=== PATIENT | female | born 1990 | race Caucasian/White ===

== ENCOUNTER 2018-01-07 13:04 | Emergency (ER) | payer BC ==
[~2018-01-07] VITALS: Ht 160 cm; Wt 70.9 kg
[2018-01-07 13:07] VITALS: TEMP 36.6; Ht 160 cm; Wt 70.9 kg
[2018-01-07] MEDS ORDERED: ONDANSETRON INJ 2 MG/ML 2 ML VIAL IV STA (13:23)
[2018-01-07] MEDS ORDERED: SODIUM CHLORIDE 0.9% 1000ML 1,000 ML IV STA (13:23)
[2018-01-07] MEDS ORDERED: HYDROmorphone INJ 0.5 MG/0.5 ML SYR IV STA ×2 (13:23→16:26)
[2018-01-07] MEDS ORDERED: FAMOTIDINE IV INJ 20 MG in DEXTROSE 5% 100ML 100 ML IV SCH (13:30)
--- NOTE | 2018-01-07 13:30 | EMERGENCY ROOM VISIT NOTE ---
ED Visit Note First contact with patient: 13:11 CHIEF COMPLAINT: Epigastric pain, nausea, vomiting HISTORY OF PRESENTING ILLNESS: This is a 27-year-old female past medical history significant for idiopathic gastroparesis and gastric pacemaker, POTS, chronic abdominal pain on hydromorphone and tramadol, who presents to the emergency department with complaint of epigastric pain that started last night. She states that she frequently gets flare-ups of her gastroparesis, she thought this was the cause of her pain, but states that her symptoms feel worse than usual. She states the pain has been constant, in the epigastric region and right upper quadrant, radiates into her right shoulder blade area, worse after PO, currently rates as 8/10. She states that she took her Dilaudid and Zofran this morning around 8 AM, but states she vomited shortly thereafter and feels that these have not helped her pain or nausea at all. She did also try Maalox last night thinking it could be indigestion, but states this did not help. She has had associated nausea, vomiting 2, and loose stools, which she states are greasy appearing. She denies any bloody, black, or coffee ground emesis or stools. She states she has been vomiting bile and has not been able to tolerate anything by mouth since this morning. She denies any headaches, vision changes, neck pain or stiffness, chest pain, shortness of breath, dizziness or syncope, cough, urinary symptoms, or rash. REVIEW OF SYSTEMS: A complete 10 point review of systems was reviewed with the patient with pertinent positives and negatives as per history of present illness. All else were negative. PAST MEDICAL HISTORY: Reviewed as above. FAMILY HISTORY: Reports that her mother has a history of gallbladder disease and had her gallbladder removed. SOCIAL HISTORY: Lives at home with family. She is a current everyday smoker. She denies alcohol or recreational drug use. ALLERGIES: Reviewed in chart. PHYSICAL EXAM: CONSTITUTIONAL: Pleasant and cooperative. No acute distress, but appears uncomfortable. Mildly dehydrated, but otherwise well appearing and well nourished. HEENT: Normocephalic, atraumatic. Pupils equal, round and reactive to light, EOMI. TMs normal. Pharynx normal. Tacky mucous membranes. NECK: Supple, full active range of motion without discomfort. No cervical adenopathy. RESPIRATORY: Clear to auscultation bilaterally with no wheezing, crackles, rhonchi or stridor. Equal expansion bilaterally. CARDIOVASCULAR: Regular rate and rhythm with no murmurs, rubs or gallops. Normal peripheral perfusion. No edema. GASTROINTESTINAL: Moderate tenderness in the epigastric and right upper quadrant abdomen, positive Guan sign. Abdomen is otherwise soft and nondistended. No rebound tenderness or guarding. No palpable masses or HSM. Hypoactive bowel sounds present in all quadrants. MUSCULOSKELETAL: Full range of motion of all joints without discomfort. INTEGUMENTARY: No rash or other significant dermatologic conditions noted. NEUROLOGIC: Alert and oriented X 4 with normal affect. Normal strength and sensation in all 4 extremity. No focal neurologic deficits noted. Normal speech. Normal gait observed. ED COURSE AND MEDICAL DECISION MAKING: CC: Patient presenting with complaint of epigastric pain, nausea/vomiting, and loose stool DIFFERENTIAL DIAGNOSIS: Includes, but not limited to gastroparesis, gastroenteritis, gastritis, peptic ulcer disease, GERD, cholecystitis, cholelithiasis, pancreatitis, hepatitis, chronic pain, among others. INTERPRETATION OF LABS: No leukocytosis, mild anemia, no significant electrolyte abnormalities, normal renal function, normal liver enzymes and lipase. UA negative, urine negative IMAGING: ABDOMEN 2VIEW W/PA CHEST RTN CLINICAL HISTORY: 27 years-old Female presenting with epigastric pain, eval obstruction. TECHNIQUE: PA view of the chest and supine and upright views of the abdomen were obtained. COMPARISON: None. FINDINGS: Accessed right subclavian Mediport terminates in the lower SVC. Cardiomediastinal silhouette normal. Lungs and pleural spaces clear. Implanted registered medical assistant projects over the right abdomen with 2 leads projecting over the epigastrium. A suture line is noted in the epigastrium. Multiple additional suture lines may be present in the left mid abdomen. Nonobstructive bowel gas pattern. No gross pneumoperitoneum. Allowing for bowel gas and stool, no calcifications to suggest nephrolithiasis. Osseous structures normal. IMPRESSION: 1. No acute cardiopulmonary disease. 2. Postsurgical changes of the abdomen with an implanted device with leads in the epigastrium, possibly to the stomach. Correlate with surgical history. 3. No bowel obstruction or free air. ----- ULTRASOUND RIGHT UPPER QUADRANT ABDOMEN CLINICAL HISTORY: Epigastric abdominal pain. COMPARISON STUDY: Abdominal radiograph dated 01/07/2018. TECHNIQUE: Real-time, grayscale, and color flow sonography of the right upper quadrant of the abdomen was performed. Images are reviewed in the transverse and longitudinal planes. FINDINGS: Liver: The liver is normal in size and echotexture. There is no intrahepatic biliary ductal dilatation. The main portal vein is patent. Gallbladder: A 2 mm gallbladder polyp is incidentally noted. The gallbladder is otherwise normal in appearance. No gallstones are identified. There is no gallbladder wall thickening or pericholecystic fluid. A sonographic Guan's sign is reportedly absent. The common bile duct measures up to 0.4 cm in diameter. Pancreas: Visualized portions of the pancreatic head are normal in appearance. The majority of the pancreas was not well visualized. Right kidney: Survey images of the right kidney demonstrate normal size and echotexture. There is no hydronephrosis. Ascites: None. IMPRESSION: Unremarkable sonographic assessment of the right upper quadrant. No gallstones are identified. MEDICATION RECONCILIATION: I attest that I have personally reviewed the patient 's current medication list. INITIAL VITAL SIGNS REVIEW: I reviewed the patient's initial vital signs and interpret them as follows: T: Afebrile; BP: Normotensive; HR: Tachycardic; RR : Within normal limits; Pulse Ox: Within normal limits on room air. Blood pressure screening: The patient was found to have normal blood pressure on screening and does not require follow-up for repeat blood pressure check. SUMMARY: Patient was evaluated at bedside, history and physical exam performed. Patient is alert and oriented, in no acute distress, but does appear uncomfortable, resting in the stretcher. Patient is moderately tender in the epigastric and right upper quadrant region to palpation with positive Guan sign and rebound tenderness in the right upper quadrant. Patient does appear mildly dehydrated and is noted to be somewhat tachycardic. Orders were placed at bedside for labs, UA and urine , IV fluids for hydration, IV Zofran for nausea, IV Dilaudid for pain, IV Pepcid, acute abdominal x-ray series and right upper quadrant ultrasound to evaluate for epigastric pain. Patient discussed with Dr. Rob, who agrees with my assessment and plan. Labs and imaging reviewed as above, unremarkable with no explanation for the patient's pain. I suspect the patient is having a flare of her gastroparesis. She did have some improvement after Zofran and her first dose of Dilaudid, but is still complaining of pain and nausea. She was given a second dose of Dilaudid and some Phenergan. She was also given a GI cocktail. On reassessment after her second dose of medications, she states that she is feeling improved and is tolerating oral fluids at this time. Patient reassessed multiple times throughout ED stay, she remained stable and well-appearing, has not had any vomiting, and has tolerated PO fluids without incident. Patient was updated on all results and plan for discharge, she was encouraged to follow closely with her primary care provider and to keep her scheduled appointment to get established with a new GI doctor. She is concerned about her pain getting worse on the trip home, she was given PO oxycodone prior to discharge, and encouraged to continue her home pain medication as prescribed. Patient was also given strict return precautions should her symptoms worsen, she verbalized understanding. Patient was discharged home in stable condition and ambulatory. Current/Historical Medications Scheduled Duloxetine Hcl (Cymbalta), 60 MG PO DAILY Sucralfate (Carafate), 10 ML PO QID Trazodone Hcl (Trazodone), 100 MG PO HS Scheduled PRN Hydromorphone Hcl (Dilaudid), 4 MG PO UD PRN for Pain Lorazepam (Ativan), 1 MG PO UD PRN for Anxiety Ondansetron Hcl (Zofran), 4 MG PO UD PRN for Nausea Allergies Coded Allergies: Metoclopramide (Unverified Allergy, Severe, SIDE EFFECTS, 01/07/18) PT STATES SHE GETS THE SIDE EFFECTS OF THIS DRUG WHEN GIVEN SO A RECENT DR TOLD HER NOT TO EVER GET IT AGAIN. Amoxicillin (Unverified Adverse Reaction, Severe, HIVES, 01/07/18) Clavulanic Acid (Unverified Adverse Reaction, Severe, HIVES, 01/07/18) Fentanyl (Unverified Adverse Reaction, Severe, HIVES, 01/07/18) Ketorolac Tromethamine (Unverified Adverse Reaction, Severe, HIVES, 01/07/18 ) Uncoded Allergies: SILK TAPE (Adverse Reaction, Intermediate, RASH, 01/07/18) RIPS OFF SKIN WHEN LEFT ON TOO LONG. Vital Signs Date Time Temp Pulse Resp B/P (MAP) Pulse Ox O2 Delivery O2 Flow Rate FiO2 01/07/18 19:00 97 12 94/67 100 01/07/18 18:30 97 16 99 Room Air 01/07/18 18:01 100/73 01/07/18 18:00 86 19 99 Room Air 01/07/18 17:31 105/68 01/07/18 17:30 89 20 99 Room Air 01/07/18 17:01 98/80 01/07/18 17:00 98 14 96 Room Air 01/07/18 16:59 96 14 98/80 96 Room Air 01/07/18 16:36 88 01/07/18 16:14 95 17 112/72 98 Room Air 01/07/18 15:14 99 24 96/67 96 Room Air 01/07/18 13:07 36.6 104 20 109/62 98 Room Air Laboratory Results 01/07/18 14:35 Red Blood Count 4.64, Mean Corpuscular Volume 78.2, Mean Corpuscular Hemoglobin 25.4, Mean Corpuscular Hemoglobin Concent 32.5, Mean Platelet Volume 9.7, Neutrophils (%) (Auto) 43.7, Lymphocytes (%) (Auto) 43.6, Monocytes (%) (Auto) 9.8, Eosinophils (%) (Auto) 2.1, Basophils (%) (Auto) 0.4, Neutrophils # (Auto) 2.46, Lymphocytes # (Auto) 2.45, Monocytes # (Auto) 0.55, Eosinophils # (Auto) 0.12, Basophils # (Auto) 0.02 01/07/18 14:35 Test 01/07/18 13:30 01/07/18 14:35 Urine Color YELLOW Urine Appearance CLEAR (CLEAR) Urine pH 8.5 (4.5-7.5) Urine Specific [place] 1.020 (1.000-1.030) Urine Protein NEG (NEG) Urine Glucose (UA) NEG (NEG) Urine Ketones NEG (NEG) Urine Occult Blood NEG (NEG) Urine Nitrite NEG (NEG) Urine Bilirubin NEG (NEG) Urine Urobilinogen NEG (NEG) Urine Leukocyte Esterase NEG (NEG) Urine Test NEG (NEG) White Blood Count 5.62 K/uL (4.8-10.8) Red Blood Count 4.64 M/uL (4.2-5.4) Hemoglobin 11.8 g/dL (12.0-16.0) Hematocrit 36.3 % (37-47) Mean Corpuscular Volume 78.2 fL (80-100) Mean Corpuscular Hemoglobin 25.4 pg (25-34) Mean Corpuscular Hemoglobin Concent 32.5 g/dl (32-36) Platelet Count 251 K/uL (130-400) Mean Platelet Volume 9.7 fL (7.4-10.4) Neutrophils (%) (Auto) 43.7 % Lymphocytes (%) (Auto) 43.6 % Monocytes (%) (Auto) 9.8 % Eosinophils (%) (Auto) 2.1 % Basophils (%) (Auto) 0.4 % Neutrophils # (Auto) 2.46 K/uL (1.4-6.5) Lymphocytes # (Auto) 2.45 K/uL (1.2-3.4) Monocytes # (Auto) 0.55 K/uL (0.11-0.59) Eosinophils # (Auto) 0.12 K/uL (0-0.5) Basophils # (Auto) 0.02 K/uL (0-0.2) RDW Standard Deviation 46.8 fL (36.4-46.3) RDW Coefficient of Variation 16.5 % (11.5-14.5) Immature Granulocyte % (Auto) 0.4 % Immature Granulocyte # (Auto) 0.02 K/uL (0.00-0.02) Anion Gap 6.0 mmol/L (3-11) Est Creatinine Clear Calc Drug Dose 119.0 ml/min Estimated GFR () 139.6 Estimated GFR (Non- 120.5 BUN/Creatinine Ratio 13.3 (10-20) Calcium Level 8.6 mg/dl (8.5-10.1) Total Bilirubin 0.3 mg/dl (0.2-1) Direct Bilirubin < 0.1 mg/dl (0-0.2) Aspartate Amino Transf (AST/SGOT) 13 U/L (15-37) Alanine Aminotransferase (ALT/SGPT) 16 U/L (12-78) Alkaline Phosphatase 95 U/L (45-117) Total Protein 7.4 gm/dl (6.4-8.2) Albumin 3.5 gm/dl (3.4-5.0) Lipase 111 U/L (73-393) Medications Administered Medications (Trade) Dose Ordered Sig/Shira Route Start Time Stop Time Status Last Admin Dose Admin Ondansetron HCl (Zofran Inj) 4 mg NOW STAT IV 01/07/18 13:23 01/07/18 13:26 DC 01/07/18 15:05 4 MG Sodium Chloride 1,000 ml @ 999 mls/hr Q1H1M STAT IV 01/07/18 13:23 01/07/18 14:23 DC 01/07/18 15:08 999 MLS/HR Famotidine 20 mg/ Dextrose 102 ml @ 200 mls/hr Q12H IV 01/07/18 13:30 01/07/18 14:00 DC 01/07/18 15:04 200 MLS/HR Hydromorphone HCl (Dilaudid Inj) 0.5 mg NOW STAT IV 01/07/18 13:23 01/07/18 13:26 DC 01/07/18 15:05 0.5 MG Hydromorphone HCl (Dilaudid Inj) 0.5 mg NOW STAT IV 01/07/18 16:26 01/07/18 16:27 DC 01/07/18 16:47 0.5 MG Promethazine HCl 25 mg/Sodium Chloride 51 ml @ 204 mls/hr NOW STAT IV 01/07/18 16:26 01/07/18 16:40 DC 01/07/18 16:47 204 MLS/HR Al Hydroxide/Mg Hydroxide (Maalox Susp) 30 ml STK-MED ONCE .ROUTE 01/07/18 16:44 01/07/18 16:45 DC 01/07/18 16:47 30 ML Lidocaine HCl (Viscous Lidocaine 2% Soln) 20 ml STK-MED ONCE .ROUTE 01/07/18 16:44 01/07/18 16:45 DC 01/07/18 16:47 20 ML Oxycodone HCl (Roxicodone Immediate Rel Tab) 5 mg NOW STAT PO 01/07/18 18:27 01/07/18 18:28 DC 01/07/18 18:33 5 MG Heparin Sodium (Porcine) (Heparin 100 Unit/ml 5ml Flush) 5 ml STK-MED ONCE .ROUTE 01/07/18 18:52 01/07/18 18:53 DC 01/07/18 18:59 5 ML Departure Information Impression Primary Impression: Epigastric abdominal pain Additional Impression: Nausea & vomiting Dispostion Home / Self-Care Condition GOOD Prescriptions Sucralfate (CARAFATE) 1 Gm/10 Ml Naima 10 ML PO QID for 14 Days, #560 ML Take one dose 30 minutes before meals, and at bedtime. Prov: Maddie Briscoe CRNP 01/07/18 Referrals No Doctor, Assigned (PCP) Patient Instructions ED Diet [place], ED Epigastric Pain [facility], [facility] Additional Instructions You have been treated in the Emergency Department for your abdominal pain and nausea. Laboratory results and imaging studies have ruled out any emergent causes for your symptoms which would warrant admission or surgery. You have been prescribed Carafate to be taken 30 minutes before each meal and at bedtime. This is to help with stomach pain and nausea. Please take as prescribed. Continue your prescribed pain medication as directed. For additional pain control, you can use the following [id number] medicines (if >12 yo): - Regular strength (325mg/tab) Tylenol (acetaminophen) 2 tabs every 4-6 hours as needed. Do not exceed 10 tablets in a 24 hour period. Avoid taking more than 3000 mg of Tylenol per day. This includes any other sources of acetaminophen you may take on a regular basis. - Regular strength (200 mg/tab) Advil (ibuprofen) 3 tabs every 6-8 hours as needed. Do not exceed a dose of 2400 mg per day. Drink plenty of fluids to stay well hydrated. Stick with a bland diet until your symptoms are improving. Please follow-up with your Primary Care Provider and pain management doctor keep your scheduled appointment to get established with a GI doctor. In the next few days. Return to the emergency department for severe worsening abdominal or back pain, worsening nausea/vomiting, vomiting blood, blood in your stool or urine, fevers > 101.5, severe dizziness or passing out, or any other concerns. Work Instructions Return To Work: 2 days Problem Qualifiers Additional Impression: Nausea & vomiting Vomiting type: unspecified Vomiting Intractability: unspecified Qualified Codes: R11.2 - Nausea with vomiting, unspecified
[2018-01-07 15:05] LABS: BASO % 0.4 %; BASO ABS # 0.02 K/uL (0-0.2); EOS % 2.1 %; EOS ABS # 0.12 K/uL (0-0.5); HEMATOCRIT 36.3 % (37-47); HEMOGLOBIN 11.8 g/dL (12.0-16.0); IG# 0.02 K/uL (0.00-0.02); LYMPH % 43.6 %; LYMPH ABS # 2.45 K/uL (1.2-3.4); MEAN CELL VOLUME 78.2 fL (80-100); MEAN CORPUSCULAR HEMOGLOBIN 25.4 pg (25-34); MEAN CORPUSCULAR HGB CONC 32.5 g/dl (32-36); MEAN PLATELET VOLUME 9.7 fL (7.4-10.4); MONO % 9.8 %; MONO ABS # 0.55 K/uL (0.11-0.59); NEUT % 43.7 %; NEUT ABS # 2.46 K/uL (1.4-6.5); PLATELET COUNT 251 K/uL (130-400); RED CELL DISTRIBUTION WIDTH CV 16.5 % (11.5-14.5); RED CELL DISTRIBUTION WIDTH SD 46.8 fL (36.4-46.3); WHITE BLOOD COUNT 5.62 K/uL (4.8-10.8)
[2018-01-07 15:25] LABS: ALBUMIN 3.5 gm/dl (3.4-5.0); ALT/SGPT 16 U/L (12-78); BLOOD UREA NITROGEN 9 mg/dl (7-18); CALCIUM 8.6 mg/dl (8.5-10.1); CARBON DIOXIDE 25 mmol/L (21-32); CREATININE 0.67 mg/dl (0.60-1.20); GLUCOSE 84 mg/dl (70-99); LIPASE 111 U/L (73-393); POTASSIUM 3.7 mmol/L (3.5-5.1); SODIUM 138 mmol/L (136-145)
[2018-01-07 15:28] LABS: ALKALINE PHOSPHATASE 95 U/L (45-117); AST/SGOT 13 U/L (15-37); TOTAL PROTEIN 7.4 gm/dl (6.4-8.2)
--- NOTE | 2018-01-07 16:03 | DIAGNOSTIC IMAGING REPORT ---
ABDOMEN 2VIEW W/PA CHEST RTN CLINICAL HISTORY: 27 years-old Female presenting with epigastric pain, eval obstruction. TECHNIQUE: PA view of the chest and supine and upright views of the abdomen were obtained. COMPARISON: None. FINDINGS: Accessed right subclavian Mediport terminates in the lower SVC. Cardiomediastinal silhouette normal. Lungs and pleural spaces clear. Implanted healthcare or medical projects over the right abdomen with 2 leads projecting over the epigastrium. A suture line is noted in the epigastrium. Multiple additional suture lines may be present in the left mid abdomen. Nonobstructive bowel gas pattern. No gross pneumoperitoneum. Allowing for bowel gas and stool, no calcifications to suggest nephrolithiasis. Osseous structures normal. IMPRESSION: 1. No acute cardiopulmonary disease. 2. Postsurgical changes of the abdomen with an implanted device with leads in the epigastrium, possibly to the stomach. Correlate with surgical history. 3. No bowel obstruction or free air. Electronically signed by: Josef Vaz M.D. 01/07/2018 4:01 PM Dictated Date/Time: 01/07/2018 3:59 PM
--- NOTE | 2018-01-07 16:04 | DIAGNOSTIC IMAGING REPORT ---
ULTRASOUND RIGHT UPPER QUADRANT ABDOMEN CLINICAL HISTORY: Epigastric abdominal pain. COMPARISON STUDY: Abdominal radiograph dated 01/07/2018. TECHNIQUE: Real-time, grayscale, and color flow sonography of the right upper quadrant of the abdomen was performed. Images are reviewed in the transverse and longitudinal planes. FINDINGS: Liver: The liver is normal in size and echotexture. There is no intrahepatic biliary ductal dilatation. The main portal vein is patent. Gallbladder: A 2 mm gallbladder polyp is incidentally noted. The gallbladder is otherwise normal in appearance. No gallstones are identified. There is no gallbladder wall thickening or pericholecystic fluid. A sonographic Guan's sign is reportedly absent. The common bile duct measures up to 0.4 cm in diameter. Pancreas: Visualized portions of the pancreatic head are normal in appearance. The majority of the pancreas was not well visualized. Right kidney: Survey images of the right kidney demonstrate normal size and echotexture. There is no hydronephrosis. Ascites: None. IMPRESSION: Unremarkable sonographic assessment of the right upper quadrant. No gallstones are identified. Electronically signed by: Boom Breaux M.D. 01/07/2018 4:02 PM Dictated Date/Time: 01/07/2018 4:01 PM
[2018-01-07] MEDS ORDERED: PROMETHAZINE HCL INJ 25 MG in SODIUM CHLORIDE 0.9% 50ML 50 ML IV STA (16:26)
[2018-01-07] MEDS ORDERED: GI COCKTAIL PO STA (16:27)
[2018-01-07] MEDS ORDERED: LIDOCAINE HCL 2% VISC SOLN 20 ML UDC ONE (16:44)
[2018-01-07] MEDS ORDERED: ALUMINUM/MAGNESIUM SUSP 30 ML UDC ONE (16:44)
[2018-01-07] MEDS ORDERED: CRFL PO (17:51)
[2018-01-07] MEDS ORDERED: OXYCODONE HCL IR 5 MG TAB (IMMEDIATE RELEASE) PO STA (18:27)
[2018-01-07 19:00] VITALS: BP 94/67; PULSE 97; O2SAT 100
[2018-01-08] MEDS ORDERED: HYDR4TAB78 PO (14:55)
[2018-01-08] MEDS ORDERED: ONDA4TAB46 PO (14:55)
[2018-01-08] MEDS ORDERED: TRAZ100T29 PO (14:55)
[2018-01-08] MEDS ORDERED: ATV/1 PO (14:55)
[2018-01-08] MEDS ORDERED: DULO60CA44 PO (14:55)
[2018-01-08] MEDS ORDERED: DSY50 PO (16:22)
[2018-01-08] MEDS ORDERED: CYM/30 PO (16:22)
[2018-01-08] MEDS ORDERED: HYDR2TAB2 PO (16:22)
== END 2018-01-07 19:03 | disposition home or self-care (01) ==
LOC: C.EDB 13:05
DX: R10.13 Epigastric pain (principal); R11.2 Nausea with vomiting, unspecified; G89.29 Other chronic pain; K31.84 Gastroparesis; F17.200 Nicotine dependence, unspecified, uncomplicated; Z97.8 Presence of other specified devices; Z88.0 Allergy status to penicillin; Z88.6 Allergy status to analgesic agent; Z88.8 Allergy status to other drugs, medicaments and biological substances; Z84.89 Family history of other specified conditions

== ENCOUNTER 2018-01-08 15:41 | Emergency (ER) | payer BC ==
[~2018-01-08] VITALS: Ht 160 cm; Wt 70.8 kg
[~2018-01-08 15:41] MED LIST: ATV/1 PO; CRFL PO; DULO60CA44 PO; HYDR4TAB78 PO; ONDA4TAB46 PO; TRAZ100T29 PO
[2018-01-08 15:43] VITALS: TEMP 36.5; Ht 160 cm; Wt 70.8 kg
[2018-01-08] MEDS ORDERED: SODIUM CHLORIDE 0.9% 1000ML 2,000 ML IV STA (15:52)
[2018-01-08] MEDS ORDERED: HYDROmorphone INJ 0.5 MG/0.5 ML SYR IV STA (15:57)
[2018-01-08] MEDS ORDERED: ONDANSETRON INJ 2 MG/ML 2 ML VIAL IV STA (15:57)
[2018-01-08] MEDS ORDERED: OPTIRAY 320 IV PRN (16:00)
[2018-01-08] MEDS ORDERED: CYM/30 PO (16:22)
[2018-01-08] MEDS ORDERED: DSY50 PO (16:22)
[2018-01-08] MEDS ORDERED: HYDR2TAB2 PO (16:22)
[2018-01-08 16:28] LABS: BASO % 0.2 %; BASO ABS # 0.01 K/uL (0-0.2); EOS % 2.5 %; EOS ABS # 0.13 K/uL (0-0.5); HEMATOCRIT 37.8 % (37-47); HEMOGLOBIN 12.4 g/dL (12.0-16.0); IG# 0.01 K/uL (0.00-0.02); LYMPH % 38.8 %; LYMPH ABS # 2.03 K/uL (1.2-3.4); MEAN CELL VOLUME 78.4 fL (80-100); MEAN CORPUSCULAR HEMOGLOBIN 25.7 pg (25-34); MEAN CORPUSCULAR HGB CONC 32.8 g/dl (32-36); MEAN PLATELET VOLUME 9.7 fL (7.4-10.4); MONO % 10.3 %; MONO ABS # 0.54 K/uL (0.11-0.59); NEUT ABS # 2.51 K/uL (1.4-6.5); PLATELET COUNT 256 K/uL (130-400); RED CELL DISTRIBUTION WIDTH CV 16.2 % (11.5-14.5); RED CELL DISTRIBUTION WIDTH SD 46.6 fL (36.4-46.3); WHITE BLOOD COUNT 5.23 K/uL (4.8-10.8)
[2018-01-08 16:32] LABS: ISTAT CREATININE 0.6 mg/dl (0.6-1.3); ISTAT IONIZED CALCIUM 1.05 mmol/l (1.12-1.32); ISTAT POTASSIUM 3.9 mEq/L (3.3-5.0)
--- NOTE | 2018-01-08 16:54 | DIAGNOSTIC IMAGING REPORT ---
ABD/PELVIS IV CONTRAST ONLY CLINICAL HISTORY: 27 years-old Female presenting with ruq/epigastric abd pain, history of gastric pacemaker. TECHNIQUE: Multidetector CT of the abdomen and pelvis was performed after the administration of intravenous contrast. IV contrast: 118 mL of Optiray 320. A dose lowering technique was used consistent with the principles of ALARA (as low as reasonably achievable). COMPARISON: Ultrasound from 01/07/2018. CT DOSE (mGy.cm): The estimated cumulative dose is 347.12 mGy.cm. FINDINGS: Green Feed Attendant topogram: 2-lead pacer projects over the right mid abdomen with leads terminating in the region of the gastric body. A central venous catheter is partially visualized at the superior cavoatrial junction. Lung bases: Minimal basilar opacities, likely atelectasis. Normal heart size. No pericardial or pleural effusion. Liver: Normal morphology. No liver lesion. Patent hepatic vasculature. Biliary: No intrahepatic or extrahepatic biliary ductal dilatation. Normal gallbladder. Pancreas: Normal. Spleen: Normal. Adrenal glands: Normal. Kidneys and ureters: Subcentimeter hypodensity at the upper pole left kidney likely simple cyst. No nephrolithiasis. No hydronephrosis. Bladder: Incompletely evaluated secondary to underdistention. Pelvic organs: Uterus and ovaries normal. Bowel: 50 cc noted in the distal small bowel likely indicating delayed transit. No bowel obstruction. 2 leads to the anterior wall of the gastric body. Trace hiatal hernia may be present. Curvilinear radiodensity associated with a loop of bowel in the left mid abdomen (series 3 image 172), possibly indicating prior bowel surgery. Additional density noted along the anterior peritoneum of the left mid abdomen (series 3 image 203), indeterminate and possibly also postsurgical. Peritoneal cavity: No free fluid or intraperitoneal gas. Lymph nodes: No enlarged lymph nodes in the abdomen or pelvis. Vasculature: Aorta and IVC patent and normal in caliber. Abdominal wall: Small fat-containing umbilical hernia. Diastases of the abdominis rectus in the epigastrium may be postsurgical. Small fat-containing protrusion/herniation as a result of the diastases. No associated inflammatory change. The pacer in the subcutaneous tissue of the anterior right abdominal wall does not demonstrate associated fluid or inflammatory change. Musculoskeletal: Normal. IMPRESSION: 1. Normal appearance of the gastric pacer. 2. No bowel obstruction though delayed transit is suggested by fecal material in the distal small bowel. 3. No convincing evidence of acute intra-abdominal pathology. 4. Possible postsurgical changes of small bowel and the anterior peritoneum in the left abdomen. Correlate with surgical history. Electronically signed by: Josef Vaz M.D. 01/08/2018 4:52 PM Dictated Date/Time: 01/08/2018 4:44 PM
[2018-01-08 17:07] LABS: ALBUMIN 3.6 gm/dl (3.4-5.0); ALT/SGPT 17 U/L (12-78); AST/SGOT 12 U/L (15-37); BLOOD UREA NITROGEN 9 mg/dl (7-18); CARBON DIOXIDE 27 mmol/L (21-32); CREATININE 0.73 mg/dl (0.60-1.20); GLUCOSE 111 mg/dl (70-99); LIPASE 122 U/L (73-393); POTASSIUM 3.8 mmol/L (3.5-5.1); SODIUM 138 mmol/L (136-145)
[2018-01-08 17:09] LABS: ALKALINE PHOSPHATASE 95 U/L (45-117); TOTAL PROTEIN 7.7 gm/dl (6.4-8.2)
[2018-01-08] MEDS ORDERED: MoRPHine SULFATE 4 MG/ML 1 ML CARP\\VIAL IV STA (17:53)
[2018-01-08 18:36] VITALS: BP 102/71; PULSE 98; O2SAT 99
--- NOTE | 2018-01-08 22:22 | EMERGENCY ROOM VISIT NOTE ---
History Report prepared by Jorje: Gil Bourgeois Under the Supervision of: Dr. Edgar Rob D.O. First contact with patient: 15:47 Chief Complaint: HEMATURIA Stated Complaint: STOMACH PAIN, BLOODY URINE History of Present Illness The patient is a 27 year old female with a history of POTS and gastroparesis who presents to the Emergency Room with complaints of worsening abdominal pain that started 2 nights ago. She states that she was seen here yesterday. The patient had lab work which revealed mild anemia but the rest of the lab work was unremarkable. She also had an ultrasound of her right upper quadrant which was unremarkable along with an obstruction series. The patient says that her current abdominal pain does not feel like her gastroparesis. She notes that the abdominal pain started in the middle, but not she hurts more on the right side. She notes that currently the pain is also more down lower compared to before. She says that movement worsens her abdominal pain, and nothing makes it better. She adds that she has been getting a bit nauseated from the pain today. The patient says that her urine has appeared darker today, but she has not seen any blood. The patient says that she has had an increased urgency of urination today. She adds that she did pass out this morning. She states that she was up and moving around trying to ignore the pain, and suddenly felt very nauseated, with tunnel vision. She denies any injury with the episode. The patient states that she had some loose stools yesterday but denies diarrhea. She denies any chest pain, runny nose, cough, vomiting, vaginal bleeding or discharge. The patient states that she has a history of a feeding tube for the gastroparesis. She still has her gallbladder, appendix, and ovaries. Source of History: patient Onset: 2 nights ago Position: abdomen Quality: other (pain) Timing: worsening Modifying Factors (Worsening): movement Associated Symptoms: + LOC, + nausea, + urinary symptoms, No cough (or runny nose), No chest pain, No vomiting, No diarrhea Note: Associated symptoms: Denies vaginal bleeding or discharge. Review of Systems See HPI for pertinent positives & negatives. A total of 10 systems reviewed and were otherwise negative. Past Medical & Surgical Medical Problems: (1) Gastroparesis (2) POTS (postural orthostatic tachycardia syndrome) (3) Presence of gastric pacemaker Family History FH: gallbladder disease Social History Smoking Status: Never Smoker Marital Status: Housing Status: lives with family Occupation Status: unemployed Current/Historical Medications Scheduled Duloxetine Hcl (Cymbalta), 60 MG PO DAILY Sucralfate (Carafate), 10 ML PO QID Trazodone HCl (Trazodone HCl), 25-50 MG PO HS Scheduled PRN Hydromorphone Hcl (Hydromorphone Hcl), 2 MG PO Q6H PRN for Pain Lorazepam (Ativan), 1 MG PO DAILY PRN for Anxiety Ondansetron Hcl (Zofran), 4 MG PO UD PRN for Nausea Allergies Coded Allergies: Metoclopramide (Unverified Allergy, Severe, SIDE EFFECTS, 01/08/18) PT STATES SHE GETS THE SIDE EFFECTS OF THIS DRUG WHEN GIVEN SO A RECENT DR TOLD HER NOT TO EVER GET IT AGAIN. Amoxicillin (Unverified Adverse Reaction, Severe, HIVES, 01/08/18) Clavulanic Acid (Unverified Adverse Reaction, Severe, HIVES, 01/08/18) Fentanyl (Unverified Adverse Reaction, Severe, HIVES, 01/08/18) Ketorolac Tromethamine (Unverified Adverse Reaction, Severe, HIVES, 01/08/18 ) Uncoded Allergies: SILK TAPE (Adverse Reaction, Intermediate, RASH, 01/07/18) RIPS OFF SKIN WHEN LEFT ON TOO LONG. Physical Exam Vital Signs Date Time Temp Pulse Resp B/P (MAP) Pulse Ox O2 Delivery O2 Flow Rate FiO2 01/08/18 18:36 98 18 102/71 99 Room Air 01/08/18 17:37 90 18 125/68 95 Room Air 01/08/18 15:43 36.5 121 20 95/62 96 Room Air Physical Exam GENERAL: Sitting up in bed, disheveled, holding right upper quadrant EYE EXAM: normal conjunctiva. OROPHARYNX: no exudate, no erythema, lips, buccal mucosa, and tongue normal and mucous membranes are moist NECK: supple, no nuchal rigidity, no adenopathy, non-tender LUNGS: Clear to auscultation. Normal chest wall mechanics HEART: no murmurs, S1 normal and S2 normal ABDOMEN: Multiple old incisions. abdomen soft, tenderness to palpation in the right mid-abdomen, normo-active bowel sounds, no masses, no rebound or guarding. BACK: Back is symmetrical on inspection and there is no deformity, no midline tenderness, no CVA tenderness. SKIN: no rashes and no bruising UPPER EXTREMITIES: upper extremities are grossly normal. LOWER EXTREMITIES: No pitting edema. NEURO EXAM: Normal sensorium, cranial nerves II-XII grossly intact, normal speech, no gross weakness of arms, no gross weakness of legs. Medical Decision & Procedures ER Provider Diagnostic Interpretation: CT results as stated below per my review and the radiologist's interpretation: ABD/PELVIS IV CONTRAST ONLY CLINICAL HISTORY: 27 years-old Female presenting with ruq/epigastric abd pain, history of gastric pacemaker. TECHNIQUE: Multidetector CT of the abdomen and pelvis was performed after the administration of intravenous contrast. IV contrast: 118 mL of Optiray 320. A dose lowering technique was used consistent with the principles of ALARA (as low as reasonably achievable). COMPARISON: Ultrasound from 01/07/2018. CT DOSE (mGy.cm): The estimated cumulative dose is 347.12 mGy.cm. FINDINGS: [employer] topogram: 2-lead pacer projects over the right mid abdomen with leads terminating in the region of the gastric body. A central venous catheter is partially visualized at the superior cavoatrial junction. Lung bases: Minimal basilar opacities, likely atelectasis. Normal heart size. No pericardial or pleural effusion. Liver: Normal morphology. No liver lesion. Patent hepatic vasculature. Biliary: No intrahepatic or extrahepatic biliary ductal dilatation. Normal gallbladder. Pancreas: Normal. Spleen: Normal. Adrenal glands: Normal. Kidneys and ureters: Subcentimeter hypodensity at the upper pole left kidney likely simple cyst. No nephrolithiasis. No hydronephrosis. Bladder: Incompletely evaluated secondary to underdistention. Pelvic organs: Uterus and ovaries normal. Bowel: 50 cc noted in the distal small bowel likely indicating delayed transit. No bowel obstruction. 2 leads to the anterior wall of the gastric body. Trace hiatal hernia may be present. Curvilinear radiodensity associated with a loop of bowel in the left mid abdomen (series 3 image 172), possibly indicating prior bowel surgery. Additional density noted along the anterior peritoneum of the left mid abdomen (series 3 image 203), indeterminate and possibly also postsurgical. Peritoneal cavity: No free fluid or intraperitoneal gas. Lymph nodes: No enlarged lymph nodes in the abdomen or pelvis. Vasculature: Aorta and IVC patent and normal in caliber. Abdominal wall: Small fat-containing umbilical hernia. Diastases of the abdominis rectus in the epigastrium may be postsurgical. Small fat-containing protrusion/herniation as a result of the diastases. No associated inflammatory change. The pacer in the subcutaneous tissue of the anterior right abdominal wall does not demonstrate associated fluid or inflammatory change. Musculoskeletal: Normal. IMPRESSION: 1. Normal appearance of the gastric pacer. 2. No bowel obstruction though delayed transit is suggested by fecal material in the distal small bowel. 3. No convincing evidence of acute intra-abdominal pathology. 4. Possible postsurgical changes of small bowel and the anterior peritoneum in the left abdomen. Correlate with surgical history. Electronically signed by: Josef Vaz M.D. 01/08/2018 4:52 PM Dictated Date/Time: 01/08/2018 4:44 PM Laboratory Results 01/08/18 16:15 Red Blood Count 4.82, Mean Corpuscular Volume 78.4, Mean Corpuscular Hemoglobin 25.7, Mean Corpuscular Hemoglobin Concent 32.8, Mean Platelet Volume 9.7, Neutrophils (%) (Auto) 48.0, Lymphocytes (%) (Auto) 38.8, Monocytes (%) (Auto) 10.3, Eosinophils (%) (Auto) 2.5, Basophils (%) (Auto) 0.2, Neutrophils # (Auto ) 2.51, Lymphocytes # (Auto) 2.03, Monocytes # (Auto) 0.54, Eosinophils # (Auto ) 0.13, Basophils # (Auto) 0.01 01/08/18 16:15 Test 01/08/18 16:15 01/08/18 16:18 01/08/18 16:20 White Blood Count 5.23 K/uL (4.8-10.8) Red Blood Count 4.82 M/uL (4.2-5.4) Hemoglobin 12.4 g/dL (12.0-16.0) Hematocrit 37.8 % (37-47) Mean Corpuscular Volume 78.4 fL (80-100) Mean Corpuscular Hemoglobin 25.7 pg (25-34) Mean Corpuscular Hemoglobin Concent 32.8 g/dl (32-36) Platelet Count 256 K/uL (130-400) Mean Platelet Volume 9.7 fL (7.4-10.4) Neutrophils (%) (Auto) 48.0 % Lymphocytes (%) (Auto) 38.8 % Monocytes (%) (Auto) 10.3 % Eosinophils (%) (Auto) 2.5 % Basophils (%) (Auto) 0.2 % Neutrophils # (Auto) 2.51 K/uL (1.4-6.5) Lymphocytes # (Auto) 2.03 K/uL (1.2-3.4) Monocytes # (Auto) 0.54 K/uL (0.11-0.59) Eosinophils # (Auto) 0.13 K/uL (0-0.5) Basophils # (Auto) 0.01 K/uL (0-0.2) RDW Standard Deviation 46.6 fL (36.4-46.3) RDW Coefficient of Variation 16.2 % (11.5-14.5) Immature Granulocyte % (Auto) 0.2 % Immature Granulocyte # (Auto) 0.01 K/uL (0.00-0.02) Urine Color DREAD Urine Appearance CLOUDY (CLEAR) Urine pH 7.5 (4.5-7.5) Urine Specific Plato 1.015 (1.000-1.030) Urine Protein NEG (NEG) Urine Glucose (UA) NEG (NEG) Urine Ketones NEG (NEG) Urine Occult Blood 3+ (NEG) Urine Nitrite NEG (NEG) Urine Bilirubin NEG (NEG) Urine Urobilinogen NEG (NEG) Urine Leukocyte Esterase NEG (NEG) Urine RBC >30 /hpf (0-4) Urine WBC 1-5 /hpf (0-5) Urine Epithelial Cells 20-30 /lpf (0-5) Urine Bacteria 1+ (NEG) Est Creatinine Clear Calc Drug Dose 109.2 ml/min Estimated GFR () 130.8 Estimated GFR (Non- 112.9 BUN/Creatinine Ratio 12.1 (10-20) Calcium Level 9.0 mg/dl (8.5-10.1) Total Bilirubin 0.3 mg/dl (0.2-1) Direct Bilirubin < 0.1 mg/dl (0-0.2) Aspartate Amino Transf (AST/SGOT) 12 U/L (15-37) Alanine Aminotransferase (ALT/SGPT) 17 U/L (12-78) Alkaline Phosphatase 95 U/L (45-117) Total Protein 7.7 gm/dl (6.4-8.2) Albumin 3.6 gm/dl (3.4-5.0) Lipase 122 U/L (73-393) Bedside Hemoglobin 12.6 g/dl (12.0-16.0) Bedside Hematocrit 37 % (37-47) Bedside Sodium 140 mEq/L (135-144) Bedside Potassium 3.9 mEq/L (3.3-5.0) Bedside Chloride 104 mEq/L (101-112) Bedside Total CO2 26 mEq/l (24-31) Anion Gap 14.0 mmol/L (16-25) Bedside Blood Urea Nitrogen 8 mg/dl (7-18) Bedside Creatinine 0.6 mg/dl (0.6-1.3) Bedside Glucose (other) 113 mg/dl (70-99) Bedside Ionized Calcium (Xuan) 1.05 mmol/l (1.12-1.32) Urine Test NEG (NEG) Laboratory results per my review. Medications Administered Medications (Trade) Dose Ordered Sig/Shira Route Start Time Stop Time Status Last Admin Dose Admin Sodium Chloride 2,000 ml @ 999 mls/hr Q2H1M STAT IV 01/08/18 15:52 01/08/18 17:52 DC 01/08/18 16:31 999 MLS/HR Hydromorphone HCl (Dilaudid Inj) 0.5 mg NOW STAT IV 01/08/18 15:57 01/08/18 15:59 DC 01/08/18 16:29 0.5 MG Ondansetron HCl (Zofran Inj) 4 mg NOW STAT IV 01/08/18 15:57 01/08/18 15:59 DC 01/08/18 16:28 4 MG Morphine Sulfate (MoRPHine SULFATE INJ) 4 mg NOW STAT IV 01/08/18 17:53 01/08/18 17:54 DC 01/08/18 18:09 4 MG Heparin Sodium (Porcine) (Heparin 100 Unit/ml 5ml Flush) 5 ml STK-MED ONCE .ROUTE 01/08/18 18:38 01/08/18 18:39 DC 01/08/18 18:38 5 ML ED Course ED COURSE: Vital signs were reviewed and showed tachycardic vitals. The patients medical record was reviewed The above diagnostic studies were performed and reviewed. ED treatments and interventions as stated above. 1551: The patient was evaluated in room A10. A complete history and physical examination was performed. 1552: NSS 2000 ml @ 999 mls/hr IV. 1557: Zofran Inj 4 mg IV, Dilaudid Inj 0.5 mg IV. 1753: Morphine Sulfate Inj 4 mg IV. 1811: Upon reevaluation, the patient is resting.I discussed my findings with the patient and she understands and agrees with the treatment plan. Based on the patients age, coexisting illnesses, exam and lab findings the decision to treat as an outpatient was made. The patient remained stable while under my care. The patient appeared well at the time of discharge. Medical Decision Differential diagnoses includes but is not limited to gastritis, peptic ulcer disease, GERD, gallbladder disease, pancreatitis, small bowel obstruction, acute coronary syndrome, pericarditis, ischemic bowel, irritable bowel disease, irritable bowel syndrome, appendicitis, diverticulitis, malignancy, hernia, urinary tract infection, torsion, /ectopic , perforation, trauma, infectious. Patient is a 27-year-old female who was just seen here yesterday for abdominal pain that presents for the same complaint. IV was established and CBC along with BMP, LFTs, bilirubin and lipase is unremarkable. UA has small amount of blood present. was negative. CT abdomen pelvis was completely benign. Patient was given IV fluids, Zofran and 2 doses of morphine. With her negative workup, normal vitals and negative imaging she was discharged follow- up with her PCP as an outpatient. With her narcotics informed her that she could not drive both prior to receiving narcotics as she informed me that her will pick her up. I re-stressed this upon discharge. She notes that her is coming to pick her up. She was taken to the waiting room where she noted she was waiting for her . She left and entered her own car and drove home which was visualized by both security and staff at the [facility] director. Discussed with Pt concerning signs and symptoms to watch out for. Pt was instructed to follow up with their PCP and discussed with the patient their option to return to the ED at anytime for persistent or worsening symptoms. The appropriate anticipatory guidance and out-patient management, including indications for return to the emergency department, were explained at length to the patient and understood. Medication Reconcilliation Current Medication List: was personally reviewed by me Blood Pressure Screening Patient's blood pressure: Normal blood pressure Impression Primary Impression: Abdominal pain Additional Impression: Gastroparesis Scribe Attestation The scribe's documentation has been prepared under my direction and personally reviewed by me in its entirety. I confirm that the note above accurately reflects all work, treatment, procedures, and medical decision making performed by me. Departure Information Dispostion Home / Self-Care Referrals No Doctor, Assigned (PCP) Patient Instructions Abdominal Pain - [facility], Hematuria Poss Causes, My [facility] Additional Instructions Please follow up with your primary care doctor with in the next 24 hours. Any worsening of your symptoms, please return to the ED immediately. This includes any fevers greater than 100.4, worsening pain, chest pain, shortness breath, persistent nausea, vomiting, unable to eat or drink, or any other concerning signs or symptoms from your standpoint. You were given medications during this visit that will inhibit your ability to drive, operate machinery and work. Please do NOT drive, operate machinery, drink alcohol or work for the next 12hrs. Problem Qualifiers Primary Impression: Abdominal pain Abdominal location: unspecified location Qualified Codes: R10.9 - Unspecified abdominal pain
== END 2018-01-08 18:52 | disposition home or self-care (01) ==
LOC: C.EDB 15:42 → C.EDA 18:52
DX: K31.84 Gastroparesis (principal); Z93.1 Gastrostomy status; G90.9 Disorder of the autonomic nervous system, unspecified; Z79.899 Other long term (current) drug therapy; Z88.0 Allergy status to penicillin; Z88.8 Allergy status to other drugs, medicaments and biological substances; Z91.048 Other nonmedicinal substance allergy status

== ENCOUNTER 2018-01-19 16:41 | Emergency (ER) | payer BC ==
[~2018-01-19] VITALS: Ht 160 cm; Wt 71.0 kg
[~2018-01-19 16:41] MED LIST changes: +CYM/30 PO; +DSY50 PO; -DULO60CA44 PO; +HYDR2TAB2 PO; -HYDR4TAB78 PO; -TRAZ100T29 PO
[2018-01-19 16:48] VITALS: TEMP 36.8; Ht 160 cm; Wt 71.0 kg
[2018-01-19] MEDS ORDERED: DiphenhydrAMINE HCL 50 MG/ML VIAL IV STA (17:33)
[2018-01-19] MEDS ORDERED: PROCHLORPERAZINE 5 MG/ML 2 ML VIAL IV STA (17:33)
[2018-01-19] MEDS ORDERED: SODIUM CHLORIDE 0.9% 1000ML 1,000 ML IV ONE (17:45)
[2018-01-19] MEDS ORDERED: DICYCLOMINE HCL 10 MG/ML 2 ML AMP IM ONE (17:45)
[2018-01-19 18:11] LABS: BASO % 0.3 %; BASO ABS # 0.02 K/uL (0-0.2); EOS % 1.5 %; HEMATOCRIT 37.4 % (37-47); HEMOGLOBIN 12.4 g/dL (12.0-16.0); IG# 0.02 K/uL (0.00-0.02); LYMPH % 32.8 %; LYMPH ABS # 2.23 K/uL (1.2-3.4); MEAN CORPUSCULAR HEMOGLOBIN 25.5 pg (25-34); MEAN CORPUSCULAR HGB CONC 33.2 g/dl (32-36); MEAN PLATELET VOLUME 9.8 fL (7.4-10.4); MONO % 10.2 %; MONO ABS # 0.69 K/uL (0.11-0.59); NEUT % 54.9 %; NEUT ABS # 3.73 K/uL (1.4-6.5); PLATELET COUNT 279 K/uL (130-400); RED CELL DISTRIBUTION WIDTH SD 44.6 fL (36.4-46.3); WHITE BLOOD COUNT 6.79 K/uL (4.8-10.8)
[2018-01-19 18:35] LABS: ALBUMIN 3.7 gm/dl (3.4-5.0); CALCIUM 8.9 mg/dl (8.5-10.1); CREATININE 0.69 mg/dl (0.60-1.20); POTASSIUM 3.8 mmol/L (3.5-5.1)
[2018-01-19 18:38] LABS: TOTAL PROTEIN 7.7 gm/dl (6.4-8.2)
--- NOTE | 2018-01-19 18:51 | DIAGNOSTIC IMAGING REPORT ---
ABDOMEN 2VIEW W/PA CHEST RTN HISTORY: 27 years-old Female abd cramping. Hx gastroparesis. Has stimulator acute generalized abdominal pain with history of gastroparesis. Gastric stimulator device. COMPARISON: Acute abdominal series radiographs 01/07/2018, CT 01/08/2018 TECHNIQUE: PA view of the chest with erect and supine views of the abdomen FINDINGS: Cardiomediastinal and hilar silhouettes are within normal limits. Right internal jugular [id number] catheter is unchanged in positioning. There is no pneumothorax, pleural effusion, focal airspace consolidation or overt pulmonary edema. The bones of the chest appear grossly intact. Gastric stimulator device is again noted with battery pack projecting over the right midabdomen. Atrial of the left midabdomen redemonstrated. The bowel gas pattern appears nonobstructive without pneumatosis or pneumoperitoneum identified. No urolith. No fracture. Mild levoscoliosis of the lumbar spine. IMPRESSION: 1. No acute process of the chest. 2. Nonobstructive bowel gas pattern without pneumoperitoneum. The above report was generated using voice recognition software. It may contain grammatical, syntax or spelling errors. Electronically signed by: Bairon Huntley M.D. 01/19/2018 6:50 PM Dictated Date/Time: 01/19/2018 6:47 PM
[2018-01-19 19:42] VITALS: BP 116/68; PULSE 88; O2SAT 99
--- NOTE | 2018-01-19 21:53 | EMERGENCY ROOM VISIT NOTE ---
History First contact with patient: 17:17 Chief Complaint: ABDOMINAL PAIN Stated Complaint: GASTROPARESIS FARE, BELLY PAIN NAUSEA Nursing Triage Summary: patient with gastroperesis history, abodminal pain. here for evaluation and recurrent pain History of Present Illness The patient is a 27 year old female who presents to the Emergency Room with complaints of generalized abdominal pain for the past 2 or 3 weeks. The patient evidently has a history of gastroparesis chronically. She follows with a GI specialist in [place] for a gastric stimulator. She is also trying to establish with GI in [place], but does not yet have an appointment. The patient's family doctor is also in the [place] area. She does not have services locally, but states she recently moved to the area, and a friend recommended this facility for emergencies. The patient has not had fever or chills. No chest pain, chest tightness, or shortness of breath. She is nauseated without vomiting. No abdominal discomfort is reported. She denies chance of . The patient is on daily Dilaudid and has Zofran at home. She evidently took her Zofran today and this has not helped her symptoms. This is her third visit to this facility in the past 2 weeks with similar symptoms. Previous imaging studies including CT scan, ultrasound, and plain films have been unremarkable. The patient rates her current discomfort a 9/10 and is here for pain control. She states this feels similar to her gastroparesis flares. She does not identify additional aggravating or alleviating factors. Review of Systems More than 10 systems were reviewed and otherwise negative with the exception of history of present illness. Past Medical/Surgical History Medical Problems: (1) Gastroparesis (2) POTS (postural orthostatic tachycardia syndrome) (3) Presence of gastric pacemaker Family History FH: gallbladder disease Social History Smoking Status: Never Smoker Marital Status: Housing Status: lives with family Occupation Status: unemployed Current/Historical Medications Scheduled Duloxetine Hcl (Cymbalta), 60 MG PO DAILY Sucralfate (Carafate), 10 ML PO QID Trazodone HCl (Trazodone HCl), 25-50 MG PO HS Scheduled PRN Hydromorphone Hcl (Hydromorphone Hcl), 2 MG PO Q6H PRN for Pain Lorazepam (Ativan), 1 MG PO DAILY PRN for Anxiety Ondansetron Hcl (Zofran), 4 MG PO UD PRN for Nausea Physical Exam Vital Signs Date Time Temp Pulse Resp B/P (MAP) Pulse Ox O2 Delivery O2 Flow Rate FiO2 01/19/18 19:42 88 20 116/68 99 01/19/18 19:01 109 20 119/73 98 Room Air 01/19/18 16:48 36.8 102 18 101/72 100 Room Air Physical Exam VITALS: Vitals are noted on the nurse's note and reviewed by myself. Vital signs stable. GENERAL: Well-developed, well-nourished, white female, who is in no acute distress and resting comfortably. Patient is cooperative with the examination. NECK: Supple without nuchal rigidity. No lymphadenopathy. No thyromegaly. Cervical spine is nontender. HEART: Regular rate and rhythm without murmurs gallops or rubs. LUNGS: Clear to auscultation bilaterally without wheezes, rales or rhonchi. No retractions or accessory muscle use. ABDOMEN: Positive normal bowel sounds x 4. Soft, nontender, without masses or organomegaly. No guarding or rebound tenderness. No CVA tenderness. MUSCULOSKELETAL: No muscle atrophy, erythema, or edema noted. Full range of motion in all extremities. Medical Decision & Procedures ER Provider Diagnostic Interpretation: ABDOMEN 2VIEW W/PA CHEST RTN HISTORY: 27 years-old Female abd cramping. Hx gastroparesis. Has stimulator acute generalized abdominal pain with history of gastroparesis. Gastric stimulator device. COMPARISON: Acute abdominal series radiographs 01/07/2018, CT 01/08/2018 TECHNIQUE: PA view of the chest with erect and supine views of the abdomen FINDINGS: Cardiomediastinal and hilar silhouettes are within normal limits. Right internal jugular [id number] catheter is unchanged in positioning. There is no pneumothorax, pleural effusion, focal airspace consolidation or overt pulmonary edema. The bones of the chest appear grossly intact. Gastric stimulator device is again noted with battery pack projecting over the right midabdomen. Atrial of the left midabdomen redemonstrated. The bowel gas pattern appears nonobstructive without pneumatosis or pneumoperitoneum identified. No urolith. No fracture. Mild levoscoliosis of the lumbar spine. IMPRESSION: 1. No acute process of the chest. 2. Nonobstructive bowel gas pattern without pneumoperitoneum. Laboratory Results 01/19/18 17:55 Red Blood Count 4.86, Mean Corpuscular Volume 77.0, Mean Corpuscular Hemoglobin 25.5, Mean Corpuscular Hemoglobin Concent 33.2, Mean Platelet Volume 9.8, Neutrophils (%) (Auto) 54.9, Lymphocytes (%) (Auto) 32.8, Monocytes (%) (Auto) 10.2, Eosinophils (%) (Auto) 1.5, Basophils (%) (Auto) 0.3, Neutrophils # (Auto ) 3.73, Lymphocytes # (Auto) 2.23, Monocytes # (Auto) 0.69, Eosinophils # (Auto ) 0.10, Basophils # (Auto) 0.02 01/19/18 17:55 Test 01/19/18 17:55 01/19/18 18:15 White Blood Count 6.79 K/uL (4.8-10.8) Red Blood Count 4.86 M/uL (4.2-5.4) Hemoglobin 12.4 g/dL (12.0-16.0) Hematocrit 37.4 % (37-47) Mean Corpuscular Volume 77.0 fL (80-100) Mean Corpuscular Hemoglobin 25.5 pg (25-34) Mean Corpuscular Hemoglobin Concent 33.2 g/dl (32-36) Platelet Count 279 K/uL (130-400) Mean Platelet Volume 9.8 fL (7.4-10.4) Neutrophils (%) (Auto) 54.9 % Lymphocytes (%) (Auto) 32.8 % Monocytes (%) (Auto) 10.2 % Eosinophils (%) (Auto) 1.5 % Basophils (%) (Auto) 0.3 % Neutrophils # (Auto) 3.73 K/uL (1.4-6.5) Lymphocytes # (Auto) 2.23 K/uL (1.2-3.4) Monocytes # (Auto) 0.69 K/uL (0.11-0.59) Eosinophils # (Auto) 0.10 K/uL (0-0.5) Basophils # (Auto) 0.02 K/uL (0-0.2) RDW Standard Deviation 44.6 fL (36.4-46.3) RDW Coefficient of Variation 16.0 % (11.5-14.5) Immature Granulocyte % (Auto) 0.3 % Immature Granulocyte # (Auto) 0.02 K/uL (0.00-0.02) Anion Gap 7.0 mmol/L (3-11) Est Creatinine Clear Calc Drug Dose 115.7 ml/min Estimated GFR () 138.3 Estimated GFR (Non- 119.3 BUN/Creatinine Ratio 13.7 (10-20) Calcium Level 8.9 mg/dl (8.5-10.1) Magnesium Level 2.4 mg/dl (1.8-2.4) Total Bilirubin 0.4 mg/dl (0.2-1) Aspartate Amino Transf (AST/SGOT) 13 U/L (15-37) Alanine Aminotransferase (ALT/SGPT) 18 U/L (12-78) Alkaline Phosphatase 88 U/L (45-117) Total Protein 7.7 gm/dl (6.4-8.2) Albumin 3.7 gm/dl (3.4-5.0) Globulin 4.0 gm/dl (2.5-4.0) Albumin/Globulin Ratio 0.9 (0.9-2) Lipase 146 U/L (73-393) Urine Color YELLOW Urine Appearance CLOUDY (CLEAR) Urine pH 7.0 (4.5-7.5) Urine Specific [place] 1.025 (1.000-1.030) Urine Protein NEG (NEG) Urine Glucose (UA) NEG (NEG) Urine Ketones TRACE (NEG) Urine Occult Blood NEG (NEG) Urine Nitrite NEG (NEG) Urine Bilirubin NEG (NEG) Urine Urobilinogen NEG (NEG) Urine Leukocyte Esterase NEG (NEG) Urine WBC (Auto) 1-5 /hpf (0-5) Urine RBC (Auto) 0-4 /hpf (0-4) Urine Hyaline Casts (Auto) 1-5 /lpf (0-5) Urine Epithelial Cells (Auto) >30 /lpf (0-5) Urine Bacteria (Auto) NEG (NEG) Urine Test NEG (NEG) Urine Opiates Screen POS (NEG) Urine Methadone, Qualitative NEG (NEG) Urine Barbiturates NEG (NEG) Urine Phencyclidine (PCP) Level NEG (NEG) Ur Amphetamine/Methamphetamine NEG (NEG) MDMA (Ecstasy) Screen NEG (NEG) Urine Benzodiazepines Screen NEG (NEG) Urine Cocaine Metabolite NEG (NEG) Urine Marijuana (THC) NEG (NEG) Medications Administered Medications (Trade) Dose Ordered Sig/Shira Route Start Time Stop Time Status Last Admin Dose Admin Sodium Chloride 1,000 ml @ 999 mls/hr Q1H1M ONCE IV 01/19/18 17:45 18 18:45 DC 01/19/18 18:11 999 MLS/HR Dicyclomine HCl (Bentyl Inj) 20 mg NOW ONCE IM 01/19/18 17:45 01/19/18 17:46 DC 01/19/18 18:12 20 MG Prochlorperazine Edisylate (Compazine Inj) 10 mg NOW STAT IV 01/19/18 17:33 01/19/18 17:35 DC 01/19/18 18:12 10 MG Diphenhydramine HCl (Benadryl Inj) 25 mg NOW STAT IV 01/19/18 17:33 01/19/18 17:35 DC 01/19/18 18:11 25 MG Heparin Sodium (Porcine) (Heparin 100 Unit/ml 5ml Flush) 5 ml STK-MED ONCE .ROUTE 01/19/18 19:33 01/19/18 19:34 DC 01/19/18 19:33 5 ML ED Course Physical exam and history were performed. Nursing notes, EMR, and Medication List were personally reviewed. Patient appears to have abdominal pain for the past several weeks. On examination the patient does not appear toxic. Review of the EMR shows this is her third visit in the past 2 weeks. At her last visit she was given narcotics through her IV, and stated that her was going to pick her up. The patient was witnessed by security to walk out to her own vehicle and drive herself home despite explicitly being told not to do this. I am hesitant to provide her narcotics because of this. IV access was established and labs were obtained. Urine was collected. Plain films were performed. The patient was given IM Bentyl, IV Compazine and IV Benadryl. She was hydrated with IV saline. I discussed the case with my attending, Dr. Prescott, who remained involved in care and decision-making. The patient's blood work is as above and was reviewed. She does not have a significantly elevated white blood cell count, gross anemia, bandemia, or significant electrolyte imbalance. Lipase and transaminases are not diagnostic. Urine is without evidence of infection. Plain films were reviewed by myself and radiology as showing no acute process. The patient states that she recently moved to the area, and her address is in [facility], which [place] than [place] hour south of this facility. It is much closer to [facility], a facility that she would have to drive past in order to get here. I did review the [facility] EMR, and the patient has been seen several times in [place] as well as [facility] according to the [facility] documentation. Evidently today is her ninth overall ER visit in the past 7 weeks according to the documentation. She is frequenting multiple ERs and receiving narcotics. She had been following with [facility], however she fired them after not receiving narcotics. Review of the PDMP shows that she receives Dilaudid regularly in [place], as well as [facility]. I have a very strong concern for drug-seeking behavior considering the circumstances. On reevaluation the patient continued to complain of high levels of pain, and requested pain medication multiple times. I do not have objective findings on exam or studies today. Because of her history I elected to discuss the case with the on-call character impersonator, Dr. Villa. Dr. Villa recommended against narcotics as this could slow motility and actually worsen her gastroparesis. [facility] is willing to follow with her as an outpatient, however the patient did fire them recently. In lieu of this the recommendation is the patient follow-up with her GI in [place] or in [place]. She does not appear to necessitate additional imaging as recent imaging has been without significant findings. I explained these recommendations to the patient who voiced understanding. She was otherwise invited back to the ER with any new, worsening , or concerning symptoms. The chart was completed utilizing [employer] Speech Voice Recognition Software. Grammatical errors, random word insertions, pronoun errors, and incomplete sentences are an occasional consequence of this system due to software limitations, ambient noise, and hardware issues. Any formal questions or concerns about the content, text, or information contained within the body of this dictation should be directly addressed to the provider for clarification. . Medical Decision Differential diagnosis: Etiologies such as appendicitis, diverticulitis, PUD, biliary pathology, UTI, pancreatitis, obstruction, mesenteric ischemia, aortic pathology, infections, inflammatory bowel disease, renal colic, as well as others were entertained. Impression Primary Impression: Abdominal pain Additional Impression: Gastroparesis Departure Information Dispostion Home / Self-Care Condition GOOD Referrals No Doctor, Assigned (PCP) Forms HOME CARE DOCUMENTATION FORM, IMPORTANT VISIT INFORMATION Patient Instructions My [facility] Additional Instructions You were seen and evaluated today on an emergency basis only. This is not a substitute for, or an effort to provide, complete comprehensive medical care. It is not possible to recognize and treat all injuries or illnesses in a single emergency department visit. For this reason it is recommended that you followup with your primary care physician or GI specialist for ongoing care and evaluation. Drink plenty of fluids and remain well-hydrated. Try to avoid narcotics as these can exacerbate your symptoms. The emergency department does not provide narcotics for this reason. Is also recommended you avoid alcohol, nicotine, caffeine, and marijuana, as these can also exacerbate her symptoms. You are welcome to return to the emergency department anytime with new, worsening, or concerning symptoms. Problem Qualifiers Primary Impression: Abdominal pain Abdominal location: generalized Qualified Codes: R10.84 - Generalized abdominal pain
== END 2018-01-19 19:43 | disposition home or self-care (01) ==
LOC: C.EDB 16:42 → C.EDC 19:43
DX: R10.84 Generalized abdominal pain (principal); K31.84 Gastroparesis; I49.5 Sick sinus syndrome